=== PATIENT | male | born 1955 | race Caucasian/White ===

== ENCOUNTER 2021-02-11 09:50 | Outpatient (CLI) | payer SELFPAY ==
--- NOTE | 2021-02-11 09:54 | CT_ITS ---
WS: [id number] LDCT LUNG CANCER SCREENING HISTORY: HX OF TOBACCO USE/NICOTINE Dependence, cigarettes TECHNIQUE: Axial imaging performed from the apices to 1 cm below the costophrenic angles. Coronal and sagittal reformats are submitted with axial MIP series. All CT scans at [facility] use at least one of these dose optimization techniques: automated exposure control; mA and/or kV adjustment per patient size (includes targeted exams where dose is matched to clinical indication); or iterativ e reconstruction. DLP: 56.96 mGy.cm DIvol: 1.58 mGy COMPARISON: None available. Diagnostic quality: Satisfactory Lung Nodules: No pulmonary nodules or endobronchial lesions. Lungs: No abnormality. Heart: Very mildly enlarged heart. No pericardial effusion. Other findings: Mild atherosclerosis aorta. Subcentimeter mediastinal and hilar lymph nodes. Small hi atal hernia. Prior cholecystectomy. CT/CT lung screening [id number] IMPRESSION: LUNG-RADS: 1-Negative FOLLOW UP: 12 Month: Continue annual screening with LDCT OTHER FINDINGS (S MODIFIER): None.
== END 2021-02-11 09:51 | disposition home or self-care (01) ==
PROVIDERS: PCP Nurse Practitioner Family; Visit Provider Nurse Practitioner Family
DX: Z12.2 Encounter for screening for malignant neoplasm of respiratory organs (principal); F17.210 Nicotine dependence, cigarettes, uncomplicated
CPT/HCPCS: 71271

== ENCOUNTER 2023-09-25 | Inpatient (IN) | payer MEDICARE, OTHER, SELFPAY ==
[2023-09-25] VITALS (77 sets, daily range): BP systolic 99–130; BP diastolic 56–90; PULSE 70–168; RESP 13–36; TEMP 36.1–37; O2SAT 90–100; BMI 27.5
--- NOTE | 2023-09-25 | CTR_ITS ---
PROCEDURE INFORMATION: Exam: CTA Chest With Contrast Exam date and time: 09/25/2023 9:18 AM Age: 68 years old Clinical indication: Shortness of breath; Patient HX: SOB; Additional info: Afib TECHNIQUE: Imaging protocol: Computed tomographic angiography of the chest with contrast. Exam focused on the arteries. 3D rendering (Not supervised by radiologist): MIP and/or 3D reconstructed images were created by the technologist. Radiation optimization: All CT scans at this facility use at least one of these dose optimization techniques: automated exposure control; mA and/or kV adjustment per patient size (includes targeted exams where dose is matched to clinical indication); or iterative reconstruction. Contrast material: OMNI 350; Contrast volume: 100 ml; Contrast route: INTRAVENOUS (IV); REPORTING DATA: Count of CT and Cardiac NM exams in prior 12 months: This patient has received 0 known CTs and 0 known cardiac nuclear medicine studies in the 12 months prior to the current study. COMPARISON: CT lung screening [id number] 02/11/2021 10:34 AM RADIATION DOSE METRICS: Total DLP (mGy-cm): 448.83 FINDINGS: Pulmonary arteries: Normal pulmonary arteries. No pulmonary embolism. Aorta: Tiny amount of aortic calcification. Otherwise, unremarkable. Other arteries: Tiny amount of systemic arterial calcification. Otherwise, unremarkable. Lungs: Unchanged bilateral bullous emphysema. Small amount of new bilateral dependent atelectasis. Minimal superimposed pneumonitis is possible. Otherwise, unremarkable. Pleural spaces: Unremarkable. No pneumothorax. No pleural effusion. Heart: Normal heart size with right ventricular to left ventricular ratio less than 1.0. Coronary arteries: Unchanged small amount of coronary artery calcification. Lymph nodes: Mild multifocal mediastinal lymphadenopathy may be slightly increased. Gallbladder and bile ducts: Cholecystectomy. Adrenal glands: Subcentimeter unchanged right adrenal nodule is probably an adenoma. Kidneys and ureters: 5 mm x 3 mm nonobstructing left renal calculus. Stomach and bowel: Stranding in the fat adjacent to the 2nd portion of the duodenum could be duodenitis or scarring from the cholecystectomy. Bones/joints: Very mild scoliosis with mild and moderate multilevel spondylosis. Otherwise, unremarkable. Soft tissues: Unremarkable. CT/CT angio chest PE protcl [id number] IMPRESSION: 1. No pulmonary embolism. 2. Mild multifocal mediastinal lymphadenopathy is increasing. This is probably reactive, but a very slowly growing malignancy is possible. 3. Possible duodenitis. 4. Additional details as above. COMMENTS: In the absence of a history or active diagnosis of lung cancer, it is recommended that this patient with emphysema be evaluated for enrollment in a low dose CT lung cancer screening program.
--- NOTE | 2023-09-25 00:09 | ECG_ITS ---
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 Measurements Intervals [place] Rate: 164 P: 0 NM: 0 QRS: 105 QRSD: 103 T: -83 QT: 264 QTc: 436 Interpretive Statements ATRIAL FLUTTER/TACHYCARDIA vs. SVT WITH RAPID VENTRICULAR RESPONSE RIGHT AXIS DEVIATION [QRS AXIS > 100] INCOMPLETE RIGHT BUNDLE BRANCH BLOCK [90+ ms QRS DURATION, TERMINAL R IN V1/V2, 40+ ms S IN I/aVL/V4/V5/V6] ST DEVIATION AND MODERATE T-WAVE ABNORMALITY, CONSIDER INFERIOR ISCHEMIA [-0.1+ mV T-WAVE IN II/aVF] CRITICAL TEST RESULT No previous ECG available for comparison Electronically Signed On 09-25-2023 8:36:39 SHIPFITTERS SUPERVISOR by Keyur Ha M.D. [email or web address] LTDsouth sunflower county hospitalBridgeline Digitalkettering health [facility].[employer]/store/NU/[id number] f
--- NOTE | 2023-09-25 00:22 | XRR_ITS ---
PROCEDURE INFORMATION: Exam: XR Chest Exam date and time: 09/25/2023 12:33 AM Age: 68 years old Clinical indication: Shortness of breath; Patient HX: C/O SOB. Tachycardic. TECHNIQUE: Imaging protocol: Radiologic exam of the chest. Views: 1 view. COMPARISON: CT lung screening [id number] 02/11/2021 10:34 AM FINDINGS: Lungs: No consolidation. Pleural spaces: No large pleural effusion. No pneumothorax. Heart/Mediastinum: Unremarkable cardiomediastinal silhouette. Bones/joints: No acute abnormality. XR/XR chest 1V portable [id number] IMPRESSION: No acute findings.
[2023-09-25] MEDS: dilTIAZem 5 mg/mL SDV 5 mL 20 MG IVP (00:28)
[2023-09-25 00:36] LABS: Basophils % 0.2 %; Eosinophils # 0.1 10^3/uL (0.0-0.8); Eosinophils % 0.6 %; Hematocrit 44.7 % (37-53); Lymphocytes # 1.7 10^3/uL (0.8-4.8); Lymphocytes % 13.2 %; Mean Corpuscular HGB Conc 31.8 g/dL (30-55); Mean Corpuscular Hemoglobin 30.1 pg (27-33); Mean Corpuscular Volume 94.9 fl (82-101); Mean Platelet Volume 10.7 fL (7.4-10.4); Monocytes # 0.9 10^3/uL (0.2-0.9); Monocytes % 6.6 %; Neutrophils # 10.27 10^3/uL (1.8-7.7); Neutrophils % 79.1 %; Nucleated Red Blood Cells % 0 %; Platelet Count 271 10^3/cmm (157-399); Red Blood Count 4.71 10^6/uL (3.85-5.65); Red Cell Distribution Width 13.5 % (12.1-15.1)
[2023-09-25] MEDS: dilTIAZem 100 MG in sodium chloride 0.9% (add-van) 100 ML 7.5 MG IV ×2 (00:42→06:31)
[2023-09-25 00:48] LABS: Partial Thromboplastin Time 27.2 SECONDS (23.9-36.7)
[2023-09-25 00:50] LABS: D Dimer 1.94 ug/mLFEU (0-0.59)
[2023-09-25 01:03] LABS: Troponin(5th) Baseline 28 ng/L (0-15)
[2023-09-25] MEDS: amiodarone 150 MG/100 ML PREMIX 400 MG IV (01:07)
[2023-09-25 01:13] LABS: Alanine Aminotransferase 50 U/L (0-41); Alkaline Phosphatase 112 U/L (40-130); Blood Urea Nitrogen 25 mg/dL (8-23); Calcium 9.8 mg/dL (8.5-10.5); Carbon Dioxide 29 mmol/L (22-29); Chloride 100 mmol/L (98-107); Creatine Phosphokinase 51 U/L (39-308); Creatinine Clr Calc Pharmacy 76.2319; Globulin 2.8 g/dL (1.3-4.6); Glomerular Filtration Rate 74.8 mL/min (90-130); Glucose 101 mg/dL (65-115); NT Pro B Type Natriuretic Pept 2562 pg/mL (0-125); Osmolality Calculated 291 mOsm/kg (285-295); Sodium 138 mmol/L (136-145); Total Bilirubin 0.4 mg/dL (0.15-1.2); Total Protein 6.8 g/dL (6.6-8.7)
[2023-09-25 01:14] LABS: Anion Gap 13.7 (5-19); Aspartate Amino Transferase 22 U/L (0-40); Potassium 4.7 mmol/L (3.5-5.1)
--- NOTE | 2023-09-25 01:48 | ED_ITS ---
HPI - SOB/Dyspnea 2 General: Chief Complaint: Shortness of Breath/Dyspnea Stated Complaint: cant breathe, swollen legs & feet Time Seen by Provider: 09/25/23 00:22 History of Present Illness: HPI Narrative: 68-year-old male patient with no prior h istory of heart disease. He presents with palpitations, shortness of breath, and swollen legs. He says his heart rates been fast all day today. He is not experiencing overt chest pain. In triage, his heart rate is in the 160s. Associated symptoms: Reports palpitations; Deny abdominal pain, chest pain, dizziness, fever(s), nausea or vomiting Review of Systems 2 Const: Denies: fever(s), chills or body aches Eyes: Denies: change in vision Card: Reports: palpitations; Denies: chest pain Resp: Reports: dyspnea and productive cough (Chronic); Denies: non-productive cough or wheezing GI: Denies: abdominal pain, nausea, vomiting, diarrhea or hematochezia Skin/Breast: Denies: rash Neuro: Denies: headache(s), weakness in extremities, dizziness or confusion PFSH ED 2 PFSH: Medical History No pertinent past medical history Surgical History History of ankle surgery Physical Exam 2 Const: COMMON NORMALS: no acute distress GENERAL APPEARANCE: cooperative; not ill appearing and not frail appearing HENMT: COMMON NORMALS: normocephalic, atraumatic and Normal external nose present HEAD & SCALP: normocephalic and atraumatic FACE & SINUS: normal facial exam and face symmetric NOSE: Normal external nose present Eye: COMMON NORMALS: Equal, round and reactive pupils present and EOMs intact bilaterally PUPIL: Yes Equal, round and reactive pupils present Neck/C-Spine: GENERAL: Yes trachea midline Chest: CHEST: Yes Symmetrical chest wall rise Resp: COMMON NORMALS: clear to auscultation bilaterally EFFORT & INSPECTION: Yes symmetric chest movement and Yes tachypneic AUSCULTATION: c lear to auscultation bilaterally and diminished lung sounds Cardio: COMMON NORMALS: regular rhythm RATE: tachycardic RHYTHM: regular rhythm GI: COMMON NORMALS: Normal to inspection, nondistended, normoactive bowel sounds present Extremity: GENERAL: Yes edema Neuro: DAVE COMA SCALE: document GCS findings [place] coma scale eye opening: Spontaneous [place] coma scale verbal response: Orientated Dave coma scale motor response: Obey commands [place] coma scale total score: 15 S ENSORY EXAM: Yes extremities (intact) Psych: COMMON NORMALS: speech normal SPEECH: Yes normal speech Skin: COMMON NORMALS: no rashes or lesions noted GENERAL SKIN EXAM: no rashes or lesions noted Procedures Procedural Sedation Indication: other (Electrical cardioversion) ASA Class: III Preparation: hospital monitor applied, pulse oximeter, supplemental O2 applied, suction/airway equipment at bedside and IV secured Midazolam: IV Midazolam dose (mg): 2 IV Etomidate dose (mg): 5 Patient Tolerated Procedure: well and no complications Complications: none Course 2 Vital Signs: Vital signs: Vital Signs Temperature 98.6 F 09/25/23 20:27 Pulse Rate 80 09/25/23 20:27 Respiratory Rate 18 09/25/23 16:00 Blood Pressure 102/71 09/25/23 20:27 Pulse Oximetry 93 09/25/23 16:00 Oxygen Delivery Me thod Room Air 09/25/23 16:00 Oxygen Flow Rate 2 09/25/23 08:50 MDM - SOB/Dyspnea Medical Decision Making Patient was found to have a heart rate in the 160s on arrival. He is given a bolus of 20 mg of diltiazem, followed by diltiazem drip with no improvement. This was discontinued, in favor of 150 mg bolus of amiodarone, which did not seem to improve his heart rate either. After having this on board, diltiazem was restarted, with no improvement yet again. He will be consented for cardioversion under mild conscious sedation. Laboratory shows a white blood cell count of 13, otherwise not remarkable. BUN is 25, otherwise BMP is not remarkable. BNP is 2600 with a first troponin of 28. Initial EKG shows atrial flutter with a rate in the 160s. Electronic cardioversion worked for the patient. He converted to sinus rhythm in the 80s with frequent PVCs. He will go to the ICU. We have left him on a Cardizem drip for now, and are slowly decreasing/weaning the dose. Hospitalist has seen the patient. Lab Data 09/25/23 00:28 09/25/23 00:28 Labs/Radiology: Radiology Impressions Chest CTA 09/25/23 00:00 IMPRESSION: 1. No pulmonary embolism. 2. Mild multifocal mediastinal lymphadenopathy is increasing. This is probably reactive, but a very slowly growing malignancy is possible. 3. Possible duodenitis. 4. Additional details as above. COMMENTS: In the absence of a history or active diagnosis of lung cancer, it is recommended that this patient with emphysema be evaluated for enrollment in a low dose CT lung cancer screening program. Chest X-Ray 09/25/23 00:22 IMPRESSION: No acute findings. Laboratory Results WBC 13.00 10^3/uL (3.29-11.43) H 09/25/23 00:28 RBC 4.71 10^6/uL (3.85-5.65) 09/25/23 00:28 Hgb 14.20 g/dL (11.27-16.99) 09/25/23 00:28 Hct 44.7 % (37-53) 09/25/23 00: MCV 94.9 fl (82-101) 09/25/23 00: MCH 30.1 pg (27-33) 09/25/23 00: MCHC 31.8 g/dL (30-55) 09/25/23 00: RDW 13.5 % (12.1-15.1) 09/25/23 00:28 Plt Count 271 10^3/cmm (157-399) 09/25/23 00: MPV 10.7 fL (7.4-10.4) H 09/25/23 00: Neut % (Auto) 79.1 % 09/25/23 00:28 Lymph % (Auto) 13.2 % 09/25/23 00:28 [place] % (Auto) 6.6 % 09/25/23 00:28 Eos % (Auto) 0.6 % 09/25/23 00:28 Baso % (Auto) 0.2 % 09/25/23 00:28 Neut # (Auto) 10.27 10^3/uL (1.8-7.7) H 09/25/23 00:28 Lymph # (Auto) 1.7 10^3/uL (0.8-4.8) 09/25/23 00:28 [place] # (Auto) 0.9 10^3/uL (0.2-0.9) 09/25/23 00:28 Eos # (Auto) 0.1 10^3/uL (0.0-0.8) 09/25/23 00: Baso # (Auto) 0.0 10^3/uL (0.0-0.1) 09/25/23 00: Nucleated RBC % (auto) 0 % 09/25/23 Nucleated RBCs # 0.0 /100WBC 09/25/23: PT 14.50 SECONDS (12.1-14.9) 09/25/23: INR 1.10 (0.8-1.2) 09/25/23 APTT 27.2 SECONDS (23.9-36.7) 09/25/23 D-Dimer 1.94 ug/mLFEU (0-0.59) H 09/25/23 00: Sodium 138 mmol/L (136-145) 09/25/23: Potassium 4.7 mmol/L (3.5-5.1) 09/25/23: Chloride 100 mmol/L (98-107) 09/25/23: Carbon Dioxide 29 mmol/L (22-29) 09/25/23: Anion Gap 13.7 (5-19) 09/25/23: BUN 25 mg/dL (8-23) H 09/25/23: Creatinine 1.0 mg/dL (0.7-1.2) 09/25/23 GFR Calculation 74.8 mL/min (90-130) L 09/25/23 00: Glucose 101 mg/dL (65-115) 09/25/23 00: Calculated Osmolality 291 mOsm/kg (285-295) 09/25/23: Calcium 9.8 mg/dL (8.5-10.5) 09/25/23: Magnesium 2.1 mg/dL (1.7-2.3) 09/25/23 02:09 Total Bilirubin 0.4 mg/dL (0.15-1.2) 09/25/23: AST 22 U/L (0-40) 09/25/23 00:28 ALT 50 U/L (0-41) H 09/25/23 00:28 Alkaline Phosphatase 112 U/L (40-130) 09/25/23 00:28 Creatine Kinase 51 U/L (39-308) 09/25/23 00:28 Troponin T Baseline 28 ng/L (0-15) H 09/25/23 00:28 Troponin T 120 Minute 25.54 ng/L (0-15) H 09/25/23 02:09 Delta Troponin T -2.46 ABS# (0-10) L 09/25/23 02:09 NT-Pro-B Natriuret Pep 2562 pg/mL (0-125) H 09/25/23 00:28 Total Protein 6.8 g/dL (6.6-8.7) 09/25/23 00:28 Albumin 4.0 g/dL (3.5-5.2) 09/25/23 00:28 Globulin 2.8 g/dL (1.3-4.6) 09/25/23 00:28 All radiology interpretation(s) finalized by discharge Discharge Plan Discharge Patient Disposition: Admitted As Inpatient Admit Provider: Timmy Rudd Clinical Impression: Flutter-fibrillation, New onset of congestive heart failure Condition: Fair Coding Level of Care Code ED Paper Coating Supervisor for Britta Acuña
[2023-09-25] MEDS: midazolam 1 mg/mL INJ 2 mL 2 MG IVP (02:16)
--- NOTE | 2023-09-25 02:16 | ECG_ITS ---
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 Measurements Intervals [place] Rate: 160 P: 0 MT: 0 QRS: 116 QRSD: 110 T: -50 QT: 284 QTc: 464 Interpretive Statements ATRIAL FLUTTER/TACHYCARDIA WITH RAPID VENTRICULAR RESPONSE WITH ABERRANT CONDUCTION OR VENTRICULAR PREMATURE COMPLEXES INCOMPLETE RIGHT BUNDLE BRANCH BLOCK [90+ ms QRS DURATION, TERMINAL R IN V1/V2, 40+ ms S IN I/aVL/V4/V5/V6] POSSIBLE RIGHT VENTRICULAR HYPERTROPHY [SOME/ALL OF: PROMINENT R IN V1, LATE TRANSITION, RAD, JESSICA, SSS] ST DEVIATION AND MODERATE T-WAVE ABNORMALITY, CONSIDER INFERIOR ISCHEMIA [-0.1+ mV T-WAVE IN II/aVF] CRITICAL TEST RESULT Compared to ECG 09/25/2023 00:09:45 Ventricular premature complex(es) now present T-wave abnormality still present Electronically Signed On 09-25-2023 8:42:29 SUPERINTENDENT PRODUCTION by Keyur Ha M.D. [id number] f
[2023-09-25] MEDS: etomidate 2 mg/mL INJ SDV 10 mL 5 MG IVP (02:20)
--- NOTE | 2023-09-25 02:23 | ECG_ITS ---
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 Measurements Intervals [place] Rate: 85 P: 79 [place]: 158 QRS: 105 QRSD: 116 T: 89 QT: 332 QTc: 397 Interpretive Statements SINUS RHYTHM WITH FREQUENT SUPRAVENTRICULAR PREMATURE COMPLEXES INCOMPLETE RIGHT BUNDLE BRANCH BLOCK [90+ ms QRS DURATION, TERMINAL R IN V1/V2, 40+ ms S IN I/aVL/V4/V5/V6] POSSIBLE RIGHT VENTRICULAR HYPERTROPHY [SOME/ALL OF: PROMINENT R IN V1, LATE TRANSITION, RAD, JESSICA, SSS] POSSIBLE ANTERIOR MYOCARDIAL INFARCTION , PROBABLY OLD [30 ms Q WAVE IN V3/V4, OR R < 0.2 mV IN V4] Compared to ECG 09/25/2023 02:16:13 Myocardial infarct finding now present Atrial flutter no longer present Ventricular premature complex(es) no longer present T-wave abnormality no longer present Electronically Signed On 09-25-2023 8:43:01 FINANCIAL ADVOCATE by Keyur Ha M.D. [email or web address] medical [id number] f
--- NOTE | 2023-09-25 02:25 | ECG_ITS ---
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 Measurements Intervals [place] Rate: 81 P: 81 [place]: 161 QRS: 102 QRSD: 105 T: 61 QT: 333 QTc: 388 Interpretive Statements SINUS RHYTHM WITH WITH OCCASIONAL SUPRAVENTRICULAR PREMATURE COMPLEXES INCOMPLETE RIGHT BUNDLE BRANCH BLOCK [90+ ms QRS DURATION, TERMINAL R IN V1/V2, 40+ ms S IN I/aVL/V4/V5/V6] POSSIBLE RIGHT VENTRICULAR HYPERTROPHY [SOME/ALL OF: PROMINENT R IN V1, LATE TRANSITION, RAD, JESSICA, SSS] POSSIBLE ANTERIOR MYOCARDIAL INFARCTION , PROBABLY OLD [30 ms Q WAVE IN V3/V4, OR R < 0.2 mV IN V4] Compared to ECG 09/25/2023 02:23:38 Myocardial infarct finding still present Electronically Signed On 09-25-2023 8:44:00 CHIEF OF STAFF DOCTOR by Keyur Ha M.D. https://[employer]).[facility].Apex[employer]/store/NU/[id number] svitlana
--- NOTE | 2023-09-25 02:30 | PC.NURSE ---
patient sedation started at 0216. versed given. Etomidate given at 0220.
[2023-09-25 02:32] LABS: Troponin 5 2HR 25.54 ng/L (0-15)
[2023-09-25 02:34] LABS: Troponin 5 2HR Delta -2.46 ABS# (0-10)
[2023-09-25] MEDS: enoxaparin 80 mg/0.8 mL Syringe SUBCUT ×2 (02:38→15:19)
--- NOTE | 2023-09-25 04:42 | P.HP_ITS ---
Providers/Chief Complaint 2 Admitting Physician: Timmy Rudd MD Primary Care Provider: Dorcas Nava APN Chief Complaint: cant breathe, swollen legs & feet History of Present Illness Francisco Perry II is a 68 year old male active smoker, presented with chief complaint of palpitations and lower 70 swelling. Patient is stating that he has been struggling with shortness of breath for last few years, he does not use any oxygen, smokes more than half a pack a day, no previous history of CHF cancer diabetes or hypertension, presented to the hospital for palpitations. Patient is stating that his palpitations are intermittent, they would last for few minutes and then go away but this time it was causing more discomfort that prompted his visit to the ER, in the ER he was diagnosed with A-fib RVR/atrial flutter 160, he did not respond to Cardizem bolus or amiodarone and she was cardioverted which changes rhythm to normal sinus he was kept on Cardizem drip at lower rate, he is D-dimer is high I have requested CTA chest, magnesium is 2, potassium 4.7 He is not complaining of active chest pain Nonsignificant delta troponin He is requiring 2 L of oxygen, saturating 88% on room air, he has been given therapeutic Lovenox, Review of Systems 2 Const: Denies: fever(s) Eyes: Denies: change in vision ENMT: Denies: throat pain Card: Reports: swelling of feet/ankles; Denies: chest pain Resp: Reports: dyspnea Medications/Allergies Allergies Allergy/AdvReac Type Severity Reaction Status Date / Time No Known Allergies Allergy Unverified 02/02/21 13:14 PFSH Acute 2 PFSH: Medical History No pertinent past medical history Surgical History History of ankle surgery Vitals/I&O/Wt Last Vital Signs Temp 97 F L 09/25/23 00:03 Pulse 86 09/25/23 03:32 Resp 29 H 09/25/23 03:32 BP 105/60 09/25/23 03:32 Pulse Ox 96 09/25/23 03:32 O2 Del Method Room Air 09/25/23 00:03 1209/24/23 09/25/23 14:59 22:59 06:59 Intake Total 0.875 / 0.875 Balance 0.875 / 0.875 Weight last 48 hrs Weight 79.379 kg Physical Exam 2 Narrative: Signs of fluid overload Sinus rhythm Currently on 2 L GCS 15 Mild rhonchi Close 72+ edema Abdomen soft Pleasant cooperative GCS 15 S1, S2 Data 09/25/23 00:28 09/25/23 00:28 A&P Assessment and plan (1) Flutter-fibrillation: (2) COPD exacerbation: (3) New onset of congestive heart failure: Plan New onset CHF with tachyarrhythmia Atrial flutter 2:1 ratio Patient cardioverted to sinus rhythm [id number] hypertension, new onset heart failure, age 68, 3: I will keep him on therapeutic Lovenox for now High D-dimer, active smoker, will request CT chest rule out PE Will request venous Doppler as well Considering new onset CHF I will keep him on low-dose Lasix Add potassium supplementation Patient will need home oxygen evaluation I will put patient on metoprolol along therapeutic Lovenox, further plan will be made after echo report Attestations 2 Medical Necessity Statement*: Anticipating discharge within 48 hours Diagnoses Flutter-fibrillation I48.91; I48.92 COPD exacerbation J44.1 New onset of congestive heart failure I50.9
[2023-09-25 05:22] LABS: Magnesium 2.1 mg/dL (1.7-2.3)
--- NOTE | 2023-09-25 06:22 | ECG_ITS ---
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 Measurements Intervals [place] Rate: 72 P: 71 [place]: 157 QRS: 106 QRSD: 112 T: 77 QT: 370 QTc: 405 Interpretive Statements SINUS RHYTHM WITH OCCASIONAL SUPRAVENTRICULAR PREMATURE COMPLEXES INCOMPLETE RIGHT BUNDLE BRANCH BLOCK [90+ ms QRS DURATION, TERMINAL R IN V1/V2, 40+ ms S IN I/aVL/V4/V5/V6] POSSIBLE RIGHT VENTRICULAR HYPERTROPHY [SOME/ALL OF: PROMINENT R IN V1, LATE TRANSITION, RAD, JESSICA, SSS] POSSIBLE ANTERIOR MYOCARDIAL INFARCTION , OF INDETERMINATE AGE [30 ms Q WAVE IN V3/V4, OR R < 0.2 mV IN V4] Compared to ECG 09/25/2023 02:25:51 Ventricular premature complex(es) no longer present Myocardial infarct finding still present Electronically Signed On 09-25-2023 8:44:11 MEETING PLANNER by Keyur Ha M.D. [email or web address].OmniForcegulfport behavioral health systemGen One Cigcleveland clinic.GameCh[employer]/store/OM/[id number]
[2023-09-25 06:46] LABS: Urine Appearance Clear (CLEAR); Urine Color Dark Yellow (Yellow); pH Urine 5 (5-7)
[2023-09-25 06:47] LABS: Add Urine Culture? No; Add Urine Microscopic? YES; Bacteria Urine TRACE /hpf; Bilirubin Urine Neg (Negative); Blood Urine Neg (Negative); Calcium Oxalate Crystals Urine 0-4 /hpf; Glucose Urine UA Norm (Normal); Ketones Urine Negative (Negative); Leukocyte Esterase Urine Negative (Negative); Mucus Urine 2+ /hpf; Nitrate Urine Negative (Negative); Protein Urine Trace (Negative); Urobilinogen Urine 1 mg/dL (Negative); WBC Urine 0-4 /hpf (0-5)
--- NOTE | 2023-09-25 07:01 | USCV_ITS ---
Francisco Perry Age: 68 Gender: M : 1955 Exam Date: 09/25/2023 09:42 Ordering Phys: Timmy Rudd MD Technologist: Rolando Nolasco [place]am [place] [facility] [place] Indication: chf BP: 99 / 59 HR: 85 Rhythm: Other Technical Quality: Adequate MEASUREMENTS (Male / Female) Normal Values 2D ECHO LVOT Diameter 2.1 cm LV Ejection Fraction MOD 2C 45.7 % LV Ejection Fraction 2C AL 47.7 % LA Diameter 3.8 cm LA Width 3.6 cm LA Height 5.6 cm RA Width 4.2 cm RA Height 4.8 cm Aorta at Sinotubular Diameter 2.0 cm IVC Diameter 2.5 cm M-MODE Aortic Annulus Diameter 2.8 cm LA Ao Ratio MM 1.3 MV E Point Septal Separation 1.1 cm DOPPLER AV Peak Velocity 172.3 cm/s LVOT Peak Velocity 83.0 cm/s AV Area Cont Eq vti 1.7 cm squared AV Area Cont Eq pk 1.7 cm squared MV Peak Velocity 114.0 cm/s MV Area PHT 6.7 cm squared Mitral E to A Ratio 1.6 MV E' Velocity 56.5 cm/s Mitral E to MV E' Ratio 9.4 Mitral E to LV E' Lateral Ratio 7.3 Mitral E to LV E' Septal Ratio 13.4 TR Peak Velocity 328.2 cm/s TR Peak Gradient 43.1 mmHg TR Mean Velocity 239.3 cm/s TR Mean Gradient 24.6 mmHg TR Velocity Time Integral 77.8 cm Right Atrial Pressure 8.0 mmHg Pulmonary Artery Systolic Pressu 51.1 mmHg PV Peak Velocity 105.6 cm/s RV Acceleration Time 0.1 s RV Ejection Time 0.3 s RV AcT/ET 0.3 FINDINGS Left Ventricle Normal left ventricular size, systolic function and wall thickness, with no regional wall motion abnormalities. Grade I/IV diastolic dysfunction (abnormal relaxation filling pattern), normal to mildly elevated filling pressures. Left ventricular ejection fraction is estimated at 60 %. Frequent ventricular and supraventricular ectopy. Right Ventricle Mildly increased right ventricular size. Mildly decreased right ventricular systolic function. Moderate pulmonary hypertension, RVSP 51.1 mmHg. Right Atrium Mildly increased right atrial size. Left Atrium The left atrium is normal in size. Mitral Valve Structurally normal mitral valve. Mild mitral valve regurgitation. Aortic Valve Structurally normal aortic valve without significant sclerosis or stenosis. There is no aortic regurgitation. Tricuspid Valve Structurally normal tricuspid valve. Mild tricuspid valve regurgitation. Pulmonic Valve Pulmonic valve not well visualized. Pericardium Normal pericardium without effusion. Aorta Normal ascending aorta dimension. IVC Mildly dilated IVC. CONCLUSIONS Normal left ventricular size, systolic function and wall thickness, with no regional wall motion abnormalities. Grade I/IV diastolic dysfunction (abnormal relaxation filling pattern), normal to mildly elevated filling pressures. Left ventricular ejection fraction is estimated at 60 %. Frequent ventricular and supraventricular ectopy. Mildly increased right ventricular size. Mildly decreased right ventricular systolic function. Moderate pulmonary hypertension, RVSP 51.1 mmHg. Mildly increased right atrial size. Structurally normal mitral valve. Mild mitral valve regurgitation. Mildly dilated IVC. There are no prior echocardiogram studies to compare. Dr. Keyur Ha MD (Electronically Signed) Final Date: 25 September 2023 13:59 S
[2023-09-25 07:07] LABS: Troponin 5 6HR 32.16 ng/L (0-15); Troponin 5 6HR Delta 4.16 ng/L (0-12)
[2023-09-25 08:06] LABS: Thyroid Stimulating Hormone 1.89 uIU/mL (0.27-4.20)
[2023-09-25] MEDS: iohexol 350 mg/mL 500 mL Btl (per mL) IV (09:35)
[2023-09-25] MEDS: FUROsemide 10 mg/mL SDV 10mL 40 MG IVP (10:39)
[2023-09-25] MEDS: metoprolol tartrate 25 mg Tablet PO ×2 (10:39→20:11)
--- NOTE | 2023-09-25 12:43 | PM.MISC ---
Miscellaneous Note Note: seen today mom at bedside patient rate controlled and in sinus rhythm this morning Echo pending at this time
[2023-09-26] VITALS (11 sets, daily range): BP systolic 101–123; BP diastolic 69–87; PULSE 83–143; RESP 14–20; TEMP 36.5–36.8; O2SAT 90–95
[2023-09-26] MEDS: enoxaparin 80 mg/0.8 mL Syringe SUBCUT ×2 (04:07→16:23)
--- NOTE | 2023-09-26 05:04 | ECG_ITS ---
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 Measurements Intervals [place] Rate: 145 P: 0 UT: 0 QRS: 112 QRSD: 125 T: -78 QT: 304 QTc: 474 Interpretive Statements ATRIAL FLUTTER/TACHYCARDIA WITH RAPID VENTRICULAR RESPONSE WITH ABERRANT CONDUCTION OR VENTRICULAR PREMATURE COMPLEXES POSSIBLE RIGHT VENTRICULAR HYPERTROPHY [SOME/ALL OF: PROMINENT R IN V1, LATE TRANSITION, RAD, JESSICA, SSS] MODERATE T-WAVE ABNORMALITY, CONSIDER INFERIOR ISCHEMIA [-0.1+ mV T-WAVE IN II/aVF] Compared to ECG 09/25/2023 08:21:46 Ventricular premature complex(es) now present Aberrant conduction of supraventricular beat(s) now present T-wave abnormality now present Possible ischemia now present Sinus rhythm no longer present Incomplete right bundle-branch block no longer present Myocardial infarct finding no longer present Electronically Signed On 09-26-2023 15:54:45 NEWS OPERATIONS MANAGER by Keyur Ha M.D. [id number]
--- NOTE | 2023-09-26 05:20 | PC.NURSE ---
Spoke with regarding patient went back into a rapid afib rate in the 140s, BP 107/85. amiodarone iv 150mg bolus then start gtt per protocol.
[2023-09-26 05:30] LABS: Basophils % 0.3 %; Eosinophils % 0.3 %; Hematocrit 41.8 % (37-53); Lymphocytes # 1.2 10^3/uL (0.8-4.8); Lymphocytes % 13.4 %; Mean Corpuscular HGB Conc 31.3 g/dL (30-55); Mean Corpuscular Hemoglobin 29.6 pg (27-33); Mean Corpuscular Volume 94.6 fl (82-101); Mean Platelet Volume 10.8 fL (7.4-10.4); Monocytes # 0.7 10^3/uL (0.2-0.9); Monocytes % 8.1 %; Neutrophils # 6.67 10^3/uL (1.8-7.7); Neutrophils % 77.8 %; Nucleated Red Blood Cells % 0 %; Platelet Count 255 10^3/cmm (157-399); Red Blood Count 4.42 10^6/uL (3.85-5.65); Red Cell Distribution Width 13.6 % (12.1-15.1); White Blood Count 8.59 10^3/uL (3.29-11.43)
[2023-09-26] MEDS: amiodarone 150 MG/100 ML PREMIX 400 MG IV (05:34)
[2023-09-26 05:59] LABS: Anion Gap 10.5 (5-19); Blood Urea Nitrogen 22 mg/dL (8-23); C Reactive Protein 25.7 mg/L (0.0-4.9); Calcium 9.2 mg/dL (8.5-10.5); Carbon Dioxide 31 mmol/L (22-29); Chloride 102 mmol/L (98-107); Glucose 99 mg/dL (65-115); Osmolality Calculated 291 mOsm/kg (285-295); Potassium 4.5 mmol/L (3.5-5.1); Sodium 139 mmol/L (136-145)
[2023-09-26] MEDS: FUROsemide 10 mg/mL SDV 10mL 40 MG IVP (08:58)
[2023-09-26] MEDS: metoprolol tartrate 25 mg Tablet PO ×2 (08:58→21:55)
[2023-09-26] MEDS: digoxin 250 mcg/ml INJ 2 mL 500 MCG IVP (10:02)
[2023-09-26 11:16] LABS: SARS Covid-2 Antigen negative (Negative)
--- NOTE | 2023-09-26 12:29 | P.PN_ITS ---
Subjective 2 Subjective: Uncontrolled HR 140s-150s today. Started amio gtt this am. No significant difference in HR after being on infusion for 3-4 hrs. Denies any chest pain Medications: Reviewed: Yes Vitals/I&O/Wt Last Vital Signs Temp 97.8 F 09/26/23 08:00 Pulse 143 H 09/26/23 08:00 Resp 20 H 09/26/23 08:00 BP 101/82 09/26/23 08:00 Pulse Ox 95 09/26/23 08:00 O2 Del Method Nasal Cannula 09/26/23 08:00 O2 Flow Rate 2 09/26/23 07:26 09/25/23 09/26/23 09/26/23 22:59 06:59 14:59 Intake Total 480 / 965.375 100 / 1065.375 440 / 440 Balance 480 / 965.375 100 / 1065.375 440 / 440 Weight last 48 hrs Weight 84.504 kg Weight 83.007 kg Weight 84.453 kg Weight 79.379 kg Physical Exam 2 Narrative: General: No acute distress, AO x3 HEENT: PERRLA, pupils bilaterally equal and reactive, pallors not present Chest: Normal vesicular breath sounds, no added sounds, equal good air entry bilaterally CVS: S1-S2 regular, no murmurs, no tachycardia, no gallops, no rubs Abdomen: Soft, nontender, no organomegaly, bowel sounds present Neuro: No focal deficits, no facial deformity, AO x3, power 5/5 in all limbs Data 09/26/23 04:11 09/26/23 04:11 A&P Assessment and plan (1) Flutter-fibrillation: (2) COPD exacerbation: (3) New onset of congestive heart failure: Plan New onset CHF with tachyarrhythmia s/p cardioversion in the ER on 09/25 which converted into sinus rhythm, however now again in A fib since 5 am for which he was started on amiodarone gtt CTa negative for PE ; troponin series 25--> 32--> 25 Echo Left ventricular ejection fraction is estimated at 60 %; gr 1 diastolic dysfunction, pulmonary HTN with PASP 51 mmhg. , milD MVR. Continue amiodarone gtt as started this morning Start Digoxin 500mg iv x 1 now followed by 250 iv six hours later. Choosing amiodarone and digoxin due to soft BP, this am range between 79-99 systolic; currently last BP 101/82 Plan to uptitrate Beta blockers if BP allows Likely that his symptoms are chronic, previosuly placed holter in 2020 with multiple episodes of SVT Attestations 2 Medical Necessity Statement*: change to inpatient admission given change in clinical status as above Coding Level of Care Code Acute Code for Chg Fwd High MDM includes number and complexity of problems actively addressed during encounter, amount and/or complexity of data reviewed/ordered and described risk of complication, morbidity or mortality of management as documented Diagnoses Flutter-fibrillation I48.91; I48.92 COPD exacerbation J44.1 New onset of congestive heart failure I50.9
--- NOTE | 2023-09-26 13:16 | ECG_ITS ---
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 Measurements Intervals [place] Rate: 136 P: 266 MO: 147 QRS: 107 QRSD: 133 T: -80 QT: 320 QTc: 483 Interpretive Statements Atrial flutter INTRAVENTRICULAR CONDUCTION DELAY [130+ ms QRS DURATION] POSSIBLE RIGHT VENTRICULAR HYPERTROPHY [SOME/ALL OF: PROMINENT R IN V1, LATE TRANSITION, RAD, JESSICA, SSS] INTERPRETATION BASED ON A DEFAULT AGE OF 40 YEARS Compared to ECG 09/26/2023 05:11:06 Intraventricular conduction delay now present Ventricular premature complex(es) no longer present Aberrant conduction of supraventricular beat(s) no longer present T-wave abnormality no longer present Possible ischemia no longer present Electronically Signed On 09-26-2023 15:56:59 DINING CAR CONDUCTOR by Keyur Ha M.D. [id number]
[2023-09-26] MEDS: digoxin 250 mcg/ml INJ 2 mL IVP ×2 (16:23→22:33)
--- NOTE | 2023-09-26 16:45 | PM.CONSULT ---
Providers/Reason For Consult Consulting Physician/Specialty*: Nilay Gamboa/ Cardiology Reason for Consult*: Atrial fibrillation with RVR Requesting Physician: Dr Fuller Attending Physician: Isis Fuller MD Primary Care Provider: Dorcas Nava APN History of Present Illness History of Present Illness Francisco Perry II is a 68 year old male with no prior significant cardiac history has presented to hospital with on and off palpitations that became more persistent on the day of admission and shortness of breath. He has also been having lower extremity edema for the last several days.He was found to be in atrial fibrillation with RVR. He was cardioverted in the emergency room.Earlier today he went back into [facility] with RVR.He was put back on amiodarone drip, digoxin load and metoprolol.Still maintaining heart rates over 140 bpm. Has some shortness of breath. Echo showed normal LV systolic function. Review of Systems Const: Denies: fever(s) Eyes: Denies: change in vision ENMT: Denies: throat pain Card: Reports: swelling of feet/ankles and orthopnea; Denies: chest pain Resp: Reports: dyspnea Medications/Allergies Home Medications Medication Instructions Recorded Confirmed Last Taken Type albuterol sulfate 90 mcg/actuation 2 inh inhalation QID PRN Shortness 09/25/23 09/25/23 Unknown History aerosol inhaler Of Breath olmesartan 5 mg tablet 5 mg PO DAILY 09/25/23 09/25/23 Unknown History promethazine-DM 6.25 mg-15 mg/5 mL 5 ml PO Q4H PRN Cough 09/25/23 09/25/23 Unknown History oral syrup Allergies Allergy/AdvReac Type Severity Reaction Status Date / Time No Known Allergies Allergy Unverified 02/02/21 13:14 Current Medications Generic Name Dose Route Start Last Admin Trade Name Freq PRN Reason Stop Dose Admin Enoxaparin Sodium 80 mg 09/25/23 16:00 09/26/23 16:23 Enoxaparin 80 Mg/0.8 Ml Syringe SUBCUT 80 mg Q12H ARELY Administration Furosemide 40 mg 09/25/23 09:00 09/26/23 08:58 Furosemide 10 Mg/Ml Sdv 10ml IVP 40 mg Q24H ARELY Administration Amiodarone HCl/Dextrose 360 mg in 200 mls @ 0 mls/hr 09/26/23 05:30 09/26/23 12:24 Nexterone IV 0.5 mg/min .Q0M ARELY 16.67 mls/hr Administration Protocol Per Protocol Metoprolol Tartrate 25 mg 09/25/23 09:00 09/26/23 08:58 Metoprolol Tartrate 25 Mg Tablet PO 25 mg BID@0900,2100 ARELY Administration Senna/Docusate Sodium 1 tab 09/25/23 09:00 09/26/23 08:58 Sennosides-Docusate Tablet PO Not Given DAILY ARELY PFSH Acute PFSH: Medical History No pertinent past medical history Surgical History History of ankle surgery Vitals/I&O/Wt Last Vital Signs Temp 97.7 F 09/26/23 15:47 Pulse 139 H 09/26/23 15:47 Resp 20 H 09/26/23 15:47 BP 112/87 09/26/23 15:47 Pulse Ox 93 09/26/23 15:47 O2 Del Method Nasal Cannula 09/26/23 15:47 O2 Flow Rate 2 09/26/23 07:26 09/26/23 09/26/23 09/26/23 06:59 14:59 22:59 Intake Total 100 / 1065.375 440 / 440 240 / 680 Balance 100 / 1065.375 440 / 440 240 / 680 Weight last 48 hrs Weight 186 lb 4.8 oz Weight 183 lb Weight 186 lb 3 oz Weight 175 lb Physical Exam Narrative: GENERAL: Patient is alert, awake and oriented x3. [] NECK: No jugular vein distension. [] HEENT: No cyanosis. No icterus. No pallor. [] HEART: Regular, tachycardia, S1 and S2. LUNGS: Clear to auscultate bilaterally. [] CENTRAL NERVOUS SYSTEM: Grossly nonfocal. [] EXTREMITIES: Lower extremities with 1+ edema bilaterally. Data 09/26/23 04:11 09/26/23 04:11 A&P Assessment and plan (1) Flutter-fibrillation: (2) New onset of congestive heart failure: Plan Patient is currently in atrial flutter with RVR. Heart rates are over 140. Will uptitrate amiodarone drip back to 1 mg. Will also uptitrate metoprolol to 37.5 mg. Continue digoxin load and then 250 mg daily. Continue Lovenox for anticoagulation. If patient becomes hemodynamically unstable or heart rate stays above 140 bpm by tomorrow, we will plan on DAMIAN cardioversion. Now with being on amiodarone for over 24 hours, chances of staying in normal rhythm will be higher Thank you for involving us with care of this patient. We will continue to follow. Please call with questions. Consult Attestations Medical Necessity Statement: Care expected to cross 2 midnights. Coding Level of Care Code Acute Code for [facility] Diagnoses Flutter-fibrillation I48.91; I48.92 New onset of congestive heart failure I50.9
[2023-09-27] VITALS (11 sets, daily range): BP systolic 93–125; BP diastolic 60–90; PULSE 60–142; RESP 17–25; TEMP 36.6–37.1; O2SAT 89–94
[2023-09-27] MEDS: enoxaparin 80 mg/0.8 mL Syringe SUBCUT ×2 (04:56→16:56)
[2023-09-27] MEDS: FUROsemide 10 mg/mL SDV 10mL 40 MG IVP (08:51)
[2023-09-27] MEDS: metoprolol tartrate 25 mg Tablet 37.5 MG PO (08:51)
--- NOTE | 2023-09-27 09:30 | P.PN_ITS ---
Subjective 2 Subjective: Patient is continuing to be in atrial flutter with RVR. He is more short of breath today. Vitals/I&O/Wt Last Vital Signs Temp 97.8 F 09/27/23 08:00 Pulse 142 H 09/27/23 08:00 Resp 20 H 09/27/23 08:00 BP 125/90 09/27/23 08:00 Pulse Ox 91 09/27/23 08:00 O2 Del Method Room Air 09/27/23 08:00 O2 Flow Rate 2 09/26/23 07:26 09/26/23 09/27/23 09/27/23 22:59 06:59 14:59 Intake Total 385.307 / 825.307 200 / 1025.307 Balance 385.307 / 825.307 200 / 1025.307 Weight last 48 hrs Weight 186 lb 4.8 oz Weight 183 lb Weight 186 lb 3 oz Physical Exam 2 Narrative: GENERAL: Patient is alert, awake and oriented x3. [] NECK: No jugular vein distension. [] HEENT: No cyanosis. No icterus. No pallor. [] HEART: Regular, tachycardia, S1 and S2. LUNGS: Clear to auscultate bilaterally. [] CENTRAL NERVOUS SYSTEM: Grossly nonfocal. [] EXTREMITIES: Lower extremities with 1+ edema bilaterally. Data 09/26/23 04:11 09/26/23 04:11 A&P Assessment and plan (1) Flutter-fibrillation: (2) New onset of congestive heart failure: (3) Atrial flutter: Plan Patient's heart rate still uncontrolled with rates in the 140-150 range. We will proceed with DAMIAN/cardioversion. He is NPO. Continue Lovenox for anticoagulation. Continue metoprolol and amiodarone. We will continue with digoxin. Thank you for involving us with care of this patient. We will continue to follow. Please call with questions. Attestations 2 Medical Necessity Statement*: Care expected to cross 2 midnights. Coding Level of Care Code Acute Code for [facility] Diagnoses Flutter-fibrillation I48.91; I48.92 New onset of congestive heart failure I50.9 Atrial flutter I48.92
--- NOTE | 2023-09-27 09:34 | W.PM.OPSUD ---
Surgery/Procedure H&P Update DATE OF PROCEDURE: September 27, 2023 DATE H&P PERFORMED: 09/26/23 H&P UPDATE INFORMATION: I have reviewed H&P completed within last 30 days CHANGES TO PREVIOUS DOCUMENTATION: Patient continues to be in atrial flutter with RVR and breathing is worse. We will proceed with DAMIAN cardioversion. Procedure discussed in detail with patient and family PRIMARY INDICATION FOR PROCEDURE: Atrial flutter with RVR PLANNED PROCEDURE: DAMIAN/ Cardioversion Anesthesia team is available for the sedation
--- NOTE | 2023-09-27 09:45 | USCV_ITS ---
Francisco Perry Age: 68 Gender: M : 1955 Exam Date: 09/27/2023 10:00 Ordering Phys: Nilay Gamboa M.D ([email or web address]) Technologist: Jd Noe [place] [facility] [place]: A FIB BP: / HR: Rhythm: Sinus Technical Quality: Adequate MEASUREMENTS (Male / Female) Normal Values Medications Complications None Proc. Components After anesthesia team sedated the patient, we proceeded with DAMIAN probe insertion. FINDINGS Left Ventricle Normal size and function Right Ventricle Normal in size Right Atrium Grossly normal Left Atrium Dilated LA Appendage No thrombus seen in left atrial appendage IA Septum Normal Mitral Valve Structurally normal mitral valve. Aortic Valve Structurally normal aortic valve. Tricuspid Valve Grossly normal Pulmonic Valve Normal Pericardium Normal Aorta Appears to be normal CONCLUSIONS Left ventricle is normal in size and function. Left atrium is dilated No thrombus in the left atrial appendage. Nilay Gamboa MD (Electronically Signed) Final Date: 03 October 2023 13:27 S
--- NOTE | 2023-09-27 09:52 | ANES.PREANE2 ---
Pre-Anesthetic Assessment Height/Weight: Height 1.75 m Weight 83.007 kg Temp Pulse Resp BP Pulse Ox O2 Del Method O2 Flow Rate 97.8 F 142 H 20 H 125/90 91 Room Air 2 09/27/23 08:00 09/27/23 08:00 09/27/23 08:00 09/27/23 08:00 09/27/23 08:00 09/27/23 08:00 09/26/23 07:26 Cardioversion Familial anesthetic complications: None Was Beta Susan taken within 24 hours: Yes Was Clonidine taken within 24 hours: N/A Last intake: > 8hrs Social Tobacco and No alcohol Exam alert, oriented x 3, clear to auscultation bilaterally and regular rate & rhythm Airway Mallampati: Class I Dentition: false Pulmonary Chronic Obstructive Pulmonary Disease CV/HEM Atrial Fibrillation and Congestive Heart Failure Anesthetic Plan ASA status: 3 Anesthesia: MAC Risk of > 500 ml blood loss (7ml/kg in children): No Medications/Allergies Home Medications Medication Instructions Recorded Confirmed Last Taken Type albuterol sulfate 90 mcg/actuation 2 inh inhalation QID PRN Shortness 09/25/23 09/25/23 Unknown History aerosol inhaler Of Breath olmesartan 5 mg tablet 5 mg PO DAILY 09/25/23 09/25/23 Unknown History promethazine-DM 6.25 mg-15 mg/5 mL 5 ml PO Q4H PRN Cough 09/25/23 09/25/23 Unknown History oral syrup Allergies Allergy/AdvReac Type Severity Reaction Status Date / Time No Known Allergies Allergy Unverified 02/02/21 13:14 Current Medications Generic Name Dose Route Start Last Admin Trade Name Freq PRN Reason Stop Dose Admin Enoxaparin Sodium 80 mg 09/25/23 16:00 09/27/23 04:56 Enoxaparin 80 Mg/0.8 Ml Syringe SUBCUT 80 mg Q12H ARELY Administration Furosemide 40 mg 09/25/23 09:00 09/27/23 08:51 Furosemide 10 Mg/Ml Sdv 10ml IVP 40 mg Q24H ARELY Administration Amiodarone HCl/Dextrose 360 mg in 200 mls @ 0 mls/hr 09/26/23 05:30 09/27/23 03:31 Nexterone IV 1 mg/min .Q0M ARELY 33.33 mls/hr Administration Protocol Per Protocol Metoprolol Tartrate 25 mg 09/25/23 09:00 09/27/23 07:51 Metoprolol Tartrate 25 Mg Tablet PO Not Given BID@0900,2100 [facility] Senna/Docusate Sodium 1 tab 09/25/23 09:00 09/27/23 08:28 Sennosides-Docusate Tablet PO Not Given DAILY [facility] Anesthesia Medical History No pertinent past medical history Surgical History History of ankle surgery Data Anesthesia 09/26/23 04:11 09/26/23 04:11 Short CBC 09/26/23 Range/Units 04:11 WBC 8.59 (3.29-11.43) 10^3/uL Hgb 13.10 (11.27-16.99) g/dL Hct 41.8 (37-53) % MCV 94.6 (82-101) fl Plt Count 255 (157-399) 10^3/cmm Neut % (Auto) 77.8 % Neut # (Auto) 6.67 (1.8-7.7) 10^3/uL BMP 09/26/23 04:11 Sodium 139 Potassium 4.5 Chloride 102 Carbon Dioxide 31 H BUN 22 Creatinine 1.1 Glucose 99 Calcium 9.2 COVID Results 09/26/23 10:00 SARS-CoV-2 Ag (Rapid) negative Coags 09/26/23 04:11 C-Reactive Protein 25.7 H Cardiac Studies: Echocardiogram 09/25/23 Holter Monitor 02/02/21
--- NOTE | 2023-09-27 10:28 | P.PCN_ITS ---
Procedure Note: Date of procedure: 09/27/23 Pre-procedure diagnosis: Atrial flutter with RVR Post-procedure diagnosis: same Procedure: DAMIAN/ Cardioversion: After anesthesia team sedated patient we will proceed with intubation for DAMIAN probe. Left atrial appendage thrombus was ruled out. We then proceeded with synchronized DCCV with 120 J of energy. He was successfully cardioverted back to normal sinus rhythm. However after several minutes he converted back into atrial fibrillation. Performing Provider: Nilay Gamboa Complications: None Condition: stable Disposition: floor Coding Level of Care Code Acute Code for [facility]
--- NOTE | 2023-09-27 10:55 | PC.NURSE ---
physician orders PO digoxin 250mg daily
[2023-09-27] MEDS: digoxin 250 mcg Tablet PO (12:15)
--- NOTE | 2023-09-27 16:51 | PC.NURSE ---
Physician Orders Amiodarone PO 400mg BID start at 1900, discontinue gtt at 2000
--- NOTE | 2023-09-27 17:03 | P.PN_ITS ---
Subjective 2 Subjective: Underwent cardioversion earlier today and converted into sinus rhythm, however thereafter Went back into A-fib which has remained rate controlled. Off IV amiodarone. On p.o. now. Medications: Reviewed: Yes Vitals/I&O/Wt Last Vital Signs Temp 97.8 F 09/27/23 08:00 Pulse 80 09/27/23 16:00 Resp 17 09/27/23 16:00 BP 103/67 09/27/23 16:00 Pulse Ox 94 09/27/23 16:00 O2 Del Method Room Air 09/27/23 16:00 O2 Flow Rate 2 09/26/23 07:26 09/27/23 09/27/23 09/27/23 06:59 14:59 22:59 Intake Total 200 / 1025.307 440 / 440 Balance 200 / 1025.307 440 / 440 Weight last 48 hrs Weight 84.504 kg Weight 83.007 kg Physical Exam 2 Narrative: General: No acute distress, AO x3 HEENT: PERRLA, pupils bilaterally equal and reactive, pallors not present Chest: Normal vesicular breath sounds, no added sounds, equal good air entry bilaterally CVS: S1-S2 regular, no murmurs, no tachycardia, no gallops, no rubs Abdomen: Soft, nontender, no organomegaly, bowel sounds present Neuro: No focal deficits, no facial deformity, AO x3, power 5/5 in all limbs Data 09/26/23 04:11 09/26/23 04:11 A&P Assessment and plan (1) Flutter-fibrillation: (2) COPD exacerbation: (3) New onset of congestive heart failure: Plan New onset CHF with tachyarrhythmia s/p cardioversion in the ER on 09/25 which converted into sinus rhythm, however now again in A fib since 5 am for which he was started on amiodarone gtt CTa negative for PE ; troponin series 25--> 32--> 25 Echo Left ventricular ejection fraction is estimated at 60 %; gr 1 diastolic dysfunction, pulmonary HTN with PASP 51 mmhg. , milD MVR. Continue amiodarone gtt as started this morning Start Digoxin 500mg iv x 1 now followed by 250 iv six hours later. Choosing amiodarone and digoxin due to soft BP, this am range between 79-99 systolic; currently last BP 101/82 Plan to uptitrate Beta blockers if BP allows Likely that his symptoms are chronic, previosuly placed holter in 2020 with multiple episodes of SVT KATRI2 KATRI2 Plan for today: Status post cardioversion today. Converted back into sinus rhythm but then now in A-fib which is however remained rate controlled. Attestations 2 Medical Necessity Statement*: Continued telemetry monitoring to assess for sustained response Coding Level of Care Code Acute Code for [facility] Diagnoses Flutter-fibrillation I48.91; I48.92 COPD exacerbation J44.1 New onset of congestive heart failure I50.9
[2023-09-27] MEDS: amiodarone 200 mg Tablet 400 MG PO (19:09)
[2023-09-27] MEDS: metoprolol tartrate 25 mg Tablet PO (21:40)
[2023-09-28] VITALS (8 sets, daily range): BP systolic 116–126; BP diastolic 72–86; PULSE 70–136; RESP 20–27; TEMP 36.6; O2SAT 92–94; BMI 27.0
[2023-09-28 03:41] LABS: Basophils % 0.5 %; Eosinophils % 0.5 %; Hematocrit 42.1 % (37-53); Lymphocytes # 0.8 10^3/uL (0.8-4.8); Mean Corpuscular HGB Conc 32.3 g/dL (30-55); Mean Corpuscular Hemoglobin 29.8 pg (27-33); Mean Corpuscular Volume 92.1 fl (82-101); Mean Platelet Volume 11.1 fL (7.4-10.4); Monocytes # 0.7 10^3/uL (0.2-0.9); Monocytes % 10.5 %; Neutrophils # 5.03 10^3/uL (1.8-7.7); Neutrophils % 76.2 %; Nucleated Red Blood Cells % 0 %; Platelet Count 207 10^3/cmm (157-399); Red Blood Count 4.57 10^6/uL (3.85-5.65); Red Cell Distribution Width 13.2 % (12.1-15.1); White Blood Count 6.59 10^3/uL (3.29-11.43)
[2023-09-28 04:05] LABS: Alanine Aminotransferase 23 U/L (0-41); Albumin Level 3.1 g/dL (3.5-5.2); Alkaline Phosphatase 87 U/L (40-130); Anion Gap 11.7 (5-19); Aspartate Amino Transferase 13 U/L (0-40); Blood Urea Nitrogen 19 mg/dL (8-23); Carbon Dioxide 31 mmol/L (22-29); Chloride 100 mmol/L (98-107); Globulin 2.7 g/dL (1.3-4.6); Glomerular Filtration Rate 74.8 mL/min (90-130); Glucose 99 mg/dL (65-115); Osmolality Calculated 290 mOsm/kg (285-295); Potassium 3.7 mmol/L (3.5-5.1); Sodium 139 mmol/L (136-145); Total Bilirubin 0.5 mg/dL (0.15-1.2); Total Protein 5.8 g/dL (6.6-8.7)
[2023-09-28] MEDS: enoxaparin 80 mg/0.8 mL Syringe SUBCUT (05:00)
--- NOTE | 2023-09-28 08:27 | PM.PN ---
Subjective Subjective: Patient is in normal sinus rhyhtm. no chest pain. Vitals/I&O/Wt Last Vital Signs Temp 97.9 F 09/28/23 07:21 Pulse 76 09/28/23 07:37 Resp 20 H 09/28/23 07:37 BP 117/86 09/28/23 07:21 Pulse Ox 93 09/28/23 07:37 O2 Del Method Room Air 09/28/23 07:37 O2 Flow Rate 2 09/26/23 07:26 09/27/23 09/28/23 09/28/23 22:59 06:59 14:59 Intake Total 0 / 440 442 / 882 Output Total 0 / 0 Balance 0 / 440 442 / 882 Weight last 48 hrs Weight 183 lb Physical Exam Narrative: GENERAL: Patient is alert, awake and oriented x3. [] NECK: No jugular vein distension. [] HEENT: No cyanosis. No icterus. No pallor. [] HEART: Regular, S1 and S2. LUNGS: Clear to auscultate bilaterally. [] CENTRAL NERVOUS SYSTEM: Grossly nonfocal. [] EXTREMITIES: Lower extremities with 1+ edema bilaterally. Data 09/28/23 02:46 09/28/23 02:46 A&P Assessment and plan (1) Flutter-fibrillation: (2) New onset of congestive heart failure: (3) Atrial flutter: Plan After cardioversion, patient returned to A-fib briefly but is staying in normal sinus rhythm now. We will continue with current medications including Eliquis. Continue amiodarone and digoxin. Continue metoprolol. Low caffeine intake and exercise Thank you for involving us with care of this patient. Patient is stable to be discharged from cardiology standpoint. Please call with questions. Attestations Medical Necessity Statement*: Care expected to cross 2 midnights. Coding Level of Care Code Acute Code for [facility] Diagnoses Flutter-fibrillation I48.91; I48.92 New onset of congestive heart failure I50.9 Atrial flutter I48.92
[2023-09-28] MEDS: amiodarone 200 mg Tablet 400 MG PO (08:59)
[2023-09-28] MEDS: metoprolol tartrate 25 mg Tablet PO (09:00)
[2023-09-28] MEDS: digoxin 250 mcg Tablet PO (09:00)
--- NOTE | 2023-09-28 09:07 | PC.SOCIAL ---
IMM Update pg 2 of IMM updated and reviewed w/ patient. Copy provided and copy dated, initialed and placed in chart.
--- NOTE | 2023-09-28 11:09 | PM.DCS ---
Discharge Providers Date of Admission: 09/26/23 10:24 Date of Discharge: September 28, 2023 Attending Provider at Admission: Timmy Rudd MD Attending Provider at Discharge: Isis Fuller MD Primary Care Provider: Dorcas Nava APN Diagnoses at Discharge Discharge Diagnosis (1) Flutter-fibrillation: Status: Acute (2) COPD exacerbation: Status: Acute (3) New onset of congestive heart failure: Status: Acute Reason for Visit Reason for Visit: cant breathe, swollen legs & feet Hospital Course Hospital Course Francisco Perry II is a 68 year old male with no prior significant cardiac history who presented to hospital palpitations. He was found to be in atrial fibrillation with RVR. He was cardioverted in the emergency room. He remained in sinus rhythm for a few hrs but converted back to A flutter on ight on 09/27 for which he was started on amiodarone infusion, beta blockers and digoxin as HR was difficult to control. Cardiology was consulted. On 09/27 he underwent cardioversion and converted into sinus rhythm. Currently remains rate controlled. He is being discharged On eliquis 5mg BID, Amiodarone 400mg BID for one week and then reduce dose to 200mg BID , digoxin 125mcg and metoprolol 25mg BID. Event monitor has been ordered at discharge. He will follow up with cardiology outpatient in one week. Physical Exam Narrative: General: No acute distress, AO x3 HEENT: PERRLA, pupils bilaterally equal and reactive, pallors not present Chest: Normal vesicular breath sounds, no added sounds, equal good air entry bilaterally CVS: S1-S2 regular, no murmurs, no tachycardia, no gallops, no rubs Abdomen: Soft, nontender, no organomegaly, bowel sounds present Neuro: No focal deficits, no facial deformity, AO x3, power 5/5 in all limbs Discharge Data Studies Completed and Pending Completed Studies During Hospitalization Category Date Time Status CTA PE [CT angio chest PE protcl [id number]] Routine Cat Scan 09/25/23 Completed XR chest 1V portable [id number] Stat Exams 09/25/23 00:22 Completed CV. echo complete* [id number] Routine Ultrasound 09/25/23 07:01 Completed Pending at discharge Category [place] [id number] Routine Ultrasound 09/27/23 09:45 Taken Radiology Impressions Chest CTA 09/25/23 00:00 IMPRESSION: 1. No pulmonary embolism. 2. Mild multifocal mediastinal lymphadenopathy is increasing. This is probably reactive, but a very slowly growing malignancy is possible. 3. Possible duodenitis. 4. Additional details as above. COMMENTS: In the absence of a history or active diagnosis of lung cancer, it is recommended that this patient with emphysema be evaluated for enrollment in a low dose CT lung cancer screening program. Chest X-Ray 09/25/23 00:22 IMPRESSION: No acute findings. Laboratory Results WBC 6.59 10^3/uL (3.29-11.43) 09/28/23 02:46 RBC 4.57 10^6/uL (3.85-5.65) 09/28/23 02:46 Hgb 13.60 g/dL (11.27-16.99) 09/28/23 02:46 Hct 42.1 % (37-53) 09/28/23 02:46 MCV 92.1 fl (82-101) 09/28/23 02:46 MCH 29.8 pg (27-33) 09/28/23 02:46 MCHC 32.3 g/dL (30-55) 09/28/23 02:46 RDW 13.2 % (12.1-15.1) 09/28/23 02:46 Plt Count 207 10^3/cmm (157-399) 09/28/23 02:46 MPV 11.1 fL (7.4-10.4) H 09/28/23 02:46 Neut % (Auto) 76.2 % 09/28/23 02:46 Lymph % (Auto) 12.0 % 09/28/23 02:46 [place] % (Auto) 10.5 % 09/28/23 02:46 Eos % (Auto) 0.5 % 09/28/23 02:46 Baso % (Auto) 0.5 % 09/28/23 02:46 Neut # (Auto) 5.03 10^3/uL (1.8-7.7) 09/28/23 02:46 Lymph # (Auto) 0.8 10^3/uL (0.8-4.8) 09/28/23 02:46 [place] # (Auto) 0.7 10^3/uL (0.2-0.9) 09/28/23 02:46 Eos # (Auto) 0.0 10^3/uL (0.0-0.8) 09/28/23 02:46 Baso # (Auto) 0.0 10^3/uL (0.0-0.1) 09/28/23 02:46 Nucleated RBC % (auto) 0 % 09/28/23 02:46 Nucleated RBCs # 0.0 /100WBC 09/28/23 02:46 PT 14.50 SECONDS (12.1-14.9) 09/25/23 00:28 INR 1.10 (0.8-1.2) 09/25/23 00:28 APTT 27.2 SECONDS (23.9-36.7) 09/25/23 00:28 D-Dimer 1.94 ug/mLFEU (0-0.59) H 09/25/23 00:28 Sodium 139 mmol/L (136-145) 09/28/23 02:46 Potassium 3.7 mmol/L (3.5-5.1) 09/28/23 02:46 Chloride 100 mmol/L (98-107) 09/28/23 02:46 Carbon Dioxide 31 mmol/L (22-29) H 09/28/23 02:46 Anion Gap 11.7 (5-19) 09/28/23 02:46 BUN 19 mg/dL (8-23) 09/28/23 02:46 Creatinine 1.0 mg/dL (0.7-1.2) 09/28/23 02:46 GFR Calculation 74.8 mL/min (90-130) L 09/28/23 02:46 Glucose 99 mg/dL (65-115) 09/28/23 02:46 Calculated Osmolality 290 mOsm/kg (285-295) 09/28/23 02:46 Calcium 9.0 mg/dL (8.5-10.5) 09/28/23 02:46 Phosphorus 3.0 mg/dL (2.5-4.5) 09/26/23 04:11 Magnesium 2.0 mg/dL (1.7-2.3) 09/26/23 04:11 Total Bilirubin 0.5 mg/dL (0.15-1.2) 09/28/23 02:46 AST 13 U/L (0-40) 09/28/23 02:46 ALT 23 U/L (0-41) 09/28/23 02:46 Alkaline Phosphatase 87 U/L (40-130) 09/28/23 02:46 Creatine Kinase 51 U/L (39-308) 09/25/23 00:28 Troponin T Baseline 28 ng/L (0-15) H 09/25/23 00:28 Troponin T 120 Minute 25.54 ng/L (0-15) H 09/25/23 02:09 Delta Troponin T -2.46 ABS# (0-10) L 09/25/23 02:09 Troponin T Hi Sens 6Hr 32.16 ng/L (0-15) H 09/25/23 06:18 Troponin T Hi Sens 6Hr Delta 4.16 ng/L (0-12) 09/25/23 06:18 C-Reactive Protein 25.7 mg/L (0.0-4.9) H 09/26/23 04:11 NT-Pro-B Natriuret Pep 2562 pg/mL (0-125) H 09/25/23 00:28 Total Protein 5.8 g/dL (6.6-8.7) L 09/28/23 02:46 Albumin 3.1 g/dL (3.5-5.2) L 09/28/23 02:46 Globulin 2.7 g/dL (1.3-4.6) 09/28/23 02:46 TSH 1.89 uIU/mL (0.27-4.20) 09/25/23 06:18 Urine Color Dark yellow (Yellow) 09/25/23 06:14 Urine Appearance Clear (CLEAR) 09/25/23 06:14 Urine pH 5 (5-7) 09/25/23 06:14 Ur Specific [place] 1.030 (1.005-1.030) 09/25/23 06:14 Urine Protein Trace (Negative) 09/25/23 06:14 Urine Glucose (UA) Norm (Normal) 09/25/23 06:14 Urine Ketones Negative (Negative) 09/25/23 06:14 Urine Blood Neg (Negative) 09/25/23 06:14 Urine Nitrate Negative (Negative) 09/25/23 06:14 Urine Bilirubin Neg (Negative) 09/25/23 06:14 Urine Urobilinogen 1 mg/dL (Negative) H 09/25/23 06:14 Ur Leukocyte Esterase Negative (Negative) 09/25/23 06:14 Urine RBC None /hpf (0-2) 09/25/23 06:14 Urine WBC 0-4 /hpf (0-5) H 09/25/23 06:14 Ur Squamous Epith Cells None /hpf (0-5) 09/25/23 06:14 Calcium Oxalate Crystal 0-4 /hpf H 09/25/23 06:14 Amorphous Sediment Not Reportable 09/25/23 06:14 Urine Bacteria Trace /hpf (NONE) 09/25/23 06:14 Urine Mucus 2+ /hpf 09/25/23 06:14 SARS-CoV-2 Ag (Rapid) negative (Negative) 09/26/23 10:00 Vitals Last Vital Signs Temp 97.9 F 09/28/23 07:21 Pulse 86 09/28/23 09:00 Resp 20 H 09/28/23 07:37 BP 117/86 09/28/23 07:21 Pulse Ox 93 09/28/23 07:37 O2 Del Method Room Air 09/28/23 07:37 O2 Flow Rate 2 09/26/23 07:26 Discharge Plan Discharge Patient Disposition: Home Condition: Fair Prescriptions: New metoprolol tartrate 25 mg Tablet 25 mg PO BID@0900,2100 30 Days Qty: 60 0RF digoxin 250 mcg (0.25 mg) Tablet 125 mcg PO DAILY 30 Days Qty: 30 0RF amiodarone [Pacerone] 200 mg Tablet 400 mg PO BID 30 Days Qty: 120 0RF Eliquis 5 mg tablet 5 mg PO BID Qty: 60 0RF Continued albuterol sulfate 90 mcg/actuation HFA aerosol inhaler 2 inh INHALATION QID PRN (Reason: Shortness Of Breath) Discontinued promethazine-DM 6.25-15 mg/5 mL syrup 5 ml PO Q4H PRN (Reason: Cough) olmesartan 5 mg tablet 5 mg PO DAILY Discharge Orders: Discharge Order (Routine); Ordered 09/28/23 Ordered By: Isis Fuller Referrals: Rita Joiner FNP [Nurse Practitioner] - 10/04/23 9:30 am Nava,COBY Toscano [Primary Care Provider] - 10/03/23 10:45 am Discharge Diet: Cardiac Discharge Activity: Increase activity as tolerated Patient Instructions: Opioid Safety Discharge Attestations Time Spent in Discharge Care*: greater than 30 min Quality Metrics Clinical Quality Measures [ No reported AMI, CVA or VTE this stay] Coding Level of Care Code Acute Code for Chg Fwd Diagnoses Flutter-fibrillation I48.91; I48.92 COPD exacerbation J44.1 New onset of congestive heart failure I50.9
== END 2023-09-28 14:38 | disposition home or self-care (01) | DRG 308 ==
LOC: ER 01:50 → ICU 04:19 → CSU 09:08 → ICU 18:14 → CSU 18:58 → ICU 09-28 05:37
PROVIDERS: Admitting Provider Internal Medicine; Emergency Provider Emergency Medicine; PCP Nurse Practitioner Family; Visit Provider Student in an Organized Health Care Education/Training Program
DX: I48.91 Unspecified atrial fibrillation (principal); I50.31 Acute diastolic (congestive) heart failure; J44.1 Chronic obstructive pulmonary disease with (acute) exacerbation; I48.92 Unspecified atrial flutter; Z11.52 Encounter for screening for COVID-19; F17.210 Nicotine dependence, cigarettes, uncomplicated
CPT/HCPCS: 36415; 71045; 71275; 80048; 80053; 81001; 82550; 83735; 83880; 84100; 84443; 84484; 85025; 85378; 85610; 85730; 86140; 87426; 92960; 93005; 93306; 93312; 93320; 93325; 96365; 96366; 96372; 96375; 96376; 99285; A4222; A9270; G0378; J0283; J1160; J1650; J1940; J2250; J2704; J3010; J3490; Q9967

== ENCOUNTER → 2023-10-04 09:50 | Outpatient (BNVA) | payer MEDICARE, OTHER, SELFPAY | PROVIDERS: PCP Nurse Practitioner Family; Visit Provider Nurse Practitioner Family | DX: I48.91 Unspecified atrial fibrillation (principal); I48.92 Unspecified atrial flutter | CPT/HCPCS: 36415; 80162; 93005; 99214 ==

== ENCOUNTER → 2023-11-21 14:30 | Outpatient (BNVA) | payer MEDICARE, OTHER, SELFPAY | PROVIDERS: PCP Nurse Practitioner Family; Visit Provider Internal Medicine | DX: I48.0 Paroxysmal atrial fibrillation (principal); Z79.01 Long term (current) use of anticoagulants | CPT/HCPCS: 99214 ==

== ENCOUNTER → 2024-03-08 09:33 | Outpatient (BNVA) | payer MEDICARE, OTHER, SELFPAY | PROVIDERS: PCP Nurse Practitioner Family; Visit Provider Nurse Practitioner Family | DX: I48.0 Paroxysmal atrial fibrillation (principal); F17.200 Nicotine dependence, unspecified, uncomplicated; Z79.01 Long term (current) use of anticoagulants | CPT/HCPCS: 99213 ==

== ENCOUNTER → 2024-05-28 14:27 | Outpatient (BNVA) | payer MEDICARE, OTHER, SELFPAY | PROVIDERS: PCP Nurse Practitioner Family; Visit Provider Internal Medicine | DX: I48.0 Paroxysmal atrial fibrillation (principal); Z79.01 Long term (current) use of anticoagulants | CPT/HCPCS: 99214 ==

== ENCOUNTER 2024-08-10 23:39 | Emergency (ER) | payer MEDICARE, OTHER, SELFPAY ==
[2024-08-10 23:57] VITALS: BP 99/51; PULSE 56; RESP 18; TEMP 36.4; O2SAT 93
--- NOTE | 2024-08-11 00:04 | ECG_ITS ---
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 Measurements Intervals [place] Rate: 52 P: 83 WI: 170 QRS: 108 QRSD: 114 T: 180 QT: 347 QTc: 325 Interpretive Statements SINUS BRADYCARDIA INCOMPLETE RIGHT BUNDLE BRANCH BLOCK [90+ ms QRS DURATION, TERMINAL R IN V1/V2, 40+ ms S IN I/aVL/V4/V5/V6] POSSIBLE RIGHT VENTRICULAR HYPERTROPHY [SOME/ALL OF: PROMINENT R IN V1, LATE TRANSITION, RAD, JESSICA, SSS] NONSPECIFIC ST & T-WAVE ABNORMALITY Compared to ECG 10/04/2023 09:57:43 Sinus rhythm no longer present Possible ischemia no longer present T-wave abnormality still present Electronically Signed On 08-13-2024 00:09:53 CDT by Nyasia Shields M.D. [email or web address]
--- NOTE | 2024-08-11 00:16 | XRR_ITS ---
PROCEDURE INFORMATION: Exam: XR Chest Exam date and time: 08/11/2024 12:20 AM Age: 69 years old Clinical indication: Dyspnea and shortness of breath; Patient HX: Dyspnea with SOB. History of chf. TECHNIQUE: Imaging protocol: Radiologic exam of the chest. Views: 1 view. COMPARISON: CT angio chest PE protcl [id number] 09/25/2023 9:18 AM FINDINGS: Lungs: Emphysematous changes. Pleural spaces: Unremarkable. No pleural effusion. No pneumothorax. Heart/Mediastinum: Unremarkable. No cardiomegaly. Bones/joints: Unremarkable. XR/XR chest 1V portable [id number] IMPRESSION: 1. Negative for infiltrate. 2. Emphysematous changes.
--- NOTE | 2024-08-11 00:18 | ED_ITS ---
HPI - SOB/Dyspnea 2 General: Chief Complaint: Shortness of Breath/Dyspnea Stated Complaint: retaining fluid SOB Time Seen by Provider: 08/11/24 00:12 History of Present Illness: HPI Narrative: Previous to the ER with complaints shortness of breath for months sleep with short of breath and has increased today. Patient also had increased bilateral lower extremity edema. Patient is currently on Lasix 40 mg daily but the last 2 days has been taking 80 mg daily and did see some relief. Patient sees Dr. Hinojosa. His last appointment was 2023, patient denies any coughs colds fevers chills nausea vomiting chest pain or any sick contacts. Related Data Home Medications Medication Instructions Recorded Confirmed albuterol sulfate 90 mcg/actuation 2 inh inhalation QID PRN Shortness 09/25/23 05/28/24 aerosol inhaler Of Breath budesonide 160 mcg-glycopyr 9 2 inh inhalation BID 05/28/24 05/28/24 mcg-formot 4.8 mcg/actuation HFA inhaler (Breztri Aerosphere) diclofenac sodium 75 mg 75 mg PO BID PRN 05/28/24 05/28/24 tablet,delayed release hydrochlorothiazide 25 mg tablet 25 mg PO DAILY 05/29/24 Previous Rx's Medication Instructions Recorded apixaban 5 mg tablet (Eliquis) 5 mg PO BID #180 tabs 11/21/23 metoprolol tartrate 25 mg tablet 12.5 mg (1/2 x 25 mg) PO BID #90 11/21/23 tabs furosemide 20 mg tablet (Lasix) 20 mg PO BID #14 tabs 05/29/24 potassium chloride 20 mEq 20 meq PO DAILY #7 tabs 05/29/24 tablet,extended release metolazone 5 mg tablet 5 mg PO DAILY #5 tabs 08/11/24 Allergies Allergy/AdvReac Type Severity Reaction Status Date / Time No Known Allergies Allergy Verified 05/28/24 14:33 Review of Systems 2 General: Reports: 10 or more systems reviewed and unremarkable except in HPI and below PFSH ED 2 PFSH: Medical History History of cardioversion 09/27/23 Atrial fibrillation No pertinent past medical history Surgical History History of ankle surgery Social History Smoking and tobacco/nicotine status: current every day tobacco/nicotine user Physical Exam 2 Const: COMMON NORMALS: no acute distress, average body habitus, patient oriented x3, no limitations, healthy appearing, alert and well nourished HENMT: COMMON NORMALS: normocephalic, atraumatic, hearing grossly normal bilaterally, external ears normal, Normal external nose present and moist oral mucous membranes HEAD & SCALP: normocephalic and atraumatic NOSE: Normal external nose present EXTERNAL EAR: Yes external ears normal Neck/C-Spine: COMMON NORMALS: full ROM, no lymphadenopathy, supple, no meningeal signs, no JVD and Thyroid normal THYROID: Thyroid normal Chest: COMMONS NORMALS: normal inspection of the chest and normal palpation of entire chest wall Resp: COMMON NORMALS: normal respiratory effort, No retractions, No use of accessory muscles and clear to auscultation bilaterally AUSCULTATION: clear to auscultation bilaterally Cardio: COMMON NORMALS: no JVD, regular rate, regular rhythm, S1 normal heart sound present, S2 normal heart sound present, No gallops present (Cardio), No clicks present (Cardio), No murmurs present (Cardio) and No rub (Cardio) R ATE: regular rate RHYTHM: regular rhythm HEART SOUNDS: S1 normal heart sound present and S2 normal heart sound present GI: COMMON NORMALS: Normal to inspection, nondistended, normoactive bowel sounds present, Soft to palpation, non-tender, No hepatosplenomegaly present and no masses PALPATION: Yes Soft to palpation and Yes No hepatosplenomegaly present Extremity: NARRATIVE EXTREMITY EXAM: 2+ pitting edema bilateral lower extremi ties to the knees Neuro: COMMON NORMALS: patient oriented x3 SENSORIUM/ORIENTATION: Yes alert MENINGEAL SIGNS: Yes no meningeal signs Course 2 Vital Signs: Vital signs: Vital Signs Temperature 97.6 F 08/10/24 23:57 Pulse Rate 58 L 08/11/24 02:41 Respiratory Rate 17 08/11/24 02:41 Blood Pressure 129/61 08/11/24 01:31 Pulse Oximetry 92 08/11/24 02:41 Oxygen Delivery Me thod Room Air 08/11/24 02:41 MDM - SOB/Dyspnea Medical Decision Making Patient lab work done at revealed potassium of 3.4, BNP of approximately 2900, troponins were stable with an insignificant delta. Patient is given additional 60 mg Lasix and 40 mg potassium, patient diuresed over 1 L during his stay in ER. Patient said he was feeling better. Patient will be discharged and sent home on Zaroxolyn to take in addition to his Lasix for the next 5 days. Medical Records I reviewed the patient's medical records. Lab Data I reviewed the patient's lab results. 08/11/24 00:20 08/11/24 00:20 Labs/Radiology: Radiology Impressions Chest X-Ray 08/11/24 00:16 IMPRESSION: 1. Negative for infiltrate. 2. Emphysematous changes. Laboratory Results WBC 8.62 10^3/uL (3.29-11.43) 08/11/24 00:20 RBC 4.63 10^6/uL (3.85-5.65) 08/11/24 00:20 Hgb 13.70 g/dL (11.27-16.99) 08/11/24 00:20 Hct 43.5 % (37-53) 08/11/24 00:20 MCV 94.0 fl (82-101) 08/11/24 00:20 MCH 29.6 pg (27-33) 08/11/24 00:20 MCHC 31.5 g/dL (30-55) 08/11/24 00:20 RDW 14.2 % (12.1-15.1) 08/11/24 00:20 Plt Count 295 10^3/cmm (157-399) 08/11/24 00:20 MPV 10.9 fL (7.4-10.4) H 08/11/24 00:20 Neut % (Auto) 74.4 % 08/11/24 00:20 Lymph % (Auto) 12.8 % 08/11/24 00:20 [place] % (Auto) 11.6 % 08/11/24 00:20 Eos % (Auto) 0.6 % 08/11/24 00:20 Baso % (Auto) 0.3 % 08/11/24 00:20 Neut # (Auto) 6.41 10^3/uL (1.8-7.7) 08/11/24 00:20 Lymph # (Auto) 1.1 10^3/uL (0.8-4.8) 08/11/24 00:20 [place] # (Auto) 1.0 10^3/uL (0.2-0.9) H 08/11/24 00:20 Eos # (Auto) 0.1 10^3/uL (0.0-0.8) 08/11/24 00:20 Baso # (Auto) 0.0 10^3/uL (0.0-0.1) 08/11/24 00:20 Nucleated RBC % (auto) 0 % 08/11/24 00:20 Nucleated RBCs # 0.0 /100WBC 08/11/24 00:20 Sodium 141 mmol/L (136-145) 08/11/24 00:20 Potassium 3.4 mmol/L (3.5-5.1) L 08/11/24 00:20 Chloride 100 mmol/L (98-107) 08/11/24 00:20 Carbon Dioxide 34 mmol/L (22-29) H 08/11/24 00:20 Anion Gap 10.4 (5-19) 08/11/24 00:20 BUN 20 mg/dL (8-23) 08/11/24 00:20 Creatinine 1.6 mg/dL (0.7-1.2) H 08/11/24 00:20 GFR Calculation 43.3 mL/min (90-130) L 08/11/24 00:20 Glucose 86 mg/dL (65-115) 08/11/24 00:20 Calculated Osmolality 294 mOsm/kg (285-295) 08/11/24 00:20 Calcium 8.5 mg/dL (8.5-10.5) 08/11/24 00:20 Magnesium 2.0 mg/dL (1.7-2.3) 08/11/24 00:20 Total Bilirubin 0.3 mg/dL (0.15-1.2) 08/11/24 00:20 AST 15 U/L (0-40) 08/11/24 00:20 ALT 17 U/L (0-41) 08/11/24 00:20 Alkaline Phosphatase 107 U/L (40-130) 08/11/24 00:20 Troponin T Baseline 26 ng/L (0-15) H 08/11/24 00:20 Troponin T 120 Minute 24.79 ng/L (0-15) H 08/11/24 01:56 Delta Troponin T -1.21 ABS# (0-10) L 08/11/24 01:56 NT-Pro-B Natriuret Pep 2972 pg/mL (0-125) H 08/11/24 00:20 Total Protein 5.9 g/dL (6.6-8.7) L 08/11/24 00:20 Albumin 3.5 g/dL (3.5-5.2) 08/11/24 00:20 Globulin 2.4 g/dL (1.3-4.6) 08/11/24 00:20 All radiology interpretation(s) finalized by discharge Discharge Plan Discharge Patient Disposition: Home Clinical Impression: Edema, CHF (congestive heart failure) Condition: Stable Prescriptions: New metolazone 5 mg tablet 5 mg PO DAILY Qty: 5 0RF No Action Eliquis 5 mg tablet 5 mg PO BID Qty: 180 3RF metoprolol tartrate 25 mg tablet 12.5 mg PO BID Qty: 90 3RF diclofenac sodium 75 mg tablet,delayed release (DR/EC) 75 mg PO BID PRN Breztri Aerosphere 160-9-4.8 mcg/actuation HFA aerosol inhaler 2 inh inhalation BID hydrochlorothiazide 25 mg tablet 25 mg PO DAILY furosemide [Lasix] 20 mg tablet 20 mg PO BID Qty: 14 0RF potassium chloride 20 mEq tablet extended release 20 meq PO DAILY Qty: 7 0RF albuterol sulfate 90 mcg/actuation HFA aerosol inhaler 2 inh INHALATION QID PRN (Reason: Shortness Of Breath) Discharge Orders: Discharge ED (Routine); Ordered 08/11/24 Ordered By: Nahun Gallegos Referrals: Jean-Paul Hayes MD [Primary Care Provider] - 1 week Patient Instructions: Edema (ED) Activity Restrictions/Additional Instructions: Please take the Zaroxolyn in addition to your Lasix for the next 5 days. This will help you diuresed off all the excess fluid. Please follow-up with your family practice physician within the next 7 to 10 days for further evaluation and treatment. Coding Level of Care Code ED Boiler Washer for Britta Acuña
[2024-08-11 00:42] LABS: Basophils % 0.3 %; Eosinophils # 0.1 10^3/uL (0.0-0.8); Eosinophils % 0.6 %; Hematocrit 43.5 % (37-53); Lymphocytes # 1.1 10^3/uL (0.8-4.8); Lymphocytes % 12.8 %; Mean Corpuscular HGB Conc 31.5 g/dL (30-55); Mean Corpuscular Hemoglobin 29.6 pg (27-33); Mean Platelet Volume 10.9 fL (7.4-10.4); Monocytes % 11.6 %; Neutrophils # 6.41 10^3/uL (1.8-7.7); Neutrophils % 74.4 %; Nucleated Red Blood Cells % 0 %; Platelet Count 295 10^3/cmm (157-399); Red Blood Count 4.63 10^6/uL (3.85-5.65); Red Cell Distribution Width 14.2 % (12.1-15.1); White Blood Count 8.62 10^3/uL (3.29-11.43)
[2024-08-11 01:06] LABS: Troponin(5th) Baseline 26 ng/L (0-15)
[2024-08-11 01:07] LABS: Alanine Aminotransferase 17 U/L (0-41); Albumin Level 3.5 g/dL (3.5-5.2); Alkaline Phosphatase 107 U/L (40-130); Anion Gap 10.4 (5-19); Aspartate Amino Transferase 15 U/L (0-40); Blood Urea Nitrogen 20 mg/dL (8-23); Calcium 8.5 mg/dL (8.5-10.5); Carbon Dioxide 34 mmol/L (22-29); Chloride 100 mmol/L (98-107); Creatinine Clr Calc Pharmacy 48.9556; Globulin 2.4 g/dL (1.3-4.6); Glomerular Filtration Rate 43.3 mL/min (90-130); Glucose 86 mg/dL (65-115); NT Pro B Type Natriuretic Pept 2972 pg/mL (0-125); Osmolality Calculated 294 mOsm/kg (285-295); Potassium 3.4 mmol/L (3.5-5.1); Sodium 141 mmol/L (136-145); Total Bilirubin 0.3 mg/dL (0.15-1.2); Total Protein 5.9 g/dL (6.6-8.7)
[2024-08-11] MEDS: FUROsemide 10 mg/mL SDV 10mL 60 MG IVP (01:23)
[2024-08-11] MEDS: potassium chloride ER 20 mEq Tablet 40 MEQ PO (01:23)
[2024-08-11 01:31] VITALS: BP 129/61; PULSE 57; RESP 19; O2SAT 95
[2024-08-11 02:22] LABS: Troponin 5 2HR 24.79 ng/L (0-15)
[2024-08-11 02:39] LABS: Troponin 5 2HR Delta -1.21 ABS# (0-10)
[2024-08-11 02:41] VITALS: PULSE 58; RESP 17; O2SAT 92
[2024-08-11 03:19] VITALS: BP 123/65; PULSE 60; RESP 18; O2SAT 94
== END 2024-08-11 03:20 | disposition home or self-care (01) ==
PROVIDERS: Emergency Provider Emergency Medicine; PCP Internal Medicine
DX: I50.9 Heart failure, unspecified (principal); Z79.899 Other long term (current) drug therapy
CPT/HCPCS: 36415; 71045; 80053; 83735; 83880; 84484; 85025; 93005; 96374; 99285; J1940

== ENCOUNTER → 2024-10-02 13:57 | Outpatient (BNVA) | payer MEDICARE, OTHER, SELFPAY | PROVIDERS: PCP Internal Medicine; Visit Provider Internal Medicine Cardiovascular Disease | DX: I48.0 Paroxysmal atrial fibrillation (principal); I48.91 Unspecified atrial fibrillation; R00.1 Bradycardia, unspecified; R06.09 Other forms of dyspnea; J44.9 Chronic obstructive pulmonary disease, unspecified; Z79.01 Long term (current) use of anticoagulants | CPT/HCPCS: 99214 ==